=== PATIENT | male | born 1970 | race African-American/Black ===

== ENCOUNTER 2020-09-15 07:21 | Emergency (ER) | payer OTHER ==
[~2020-09-15 07:21] MED LIST: ADVIL200 M1 PO; AMITRIPTYLINE 550 MG PO; ELAVIL25 MG PO; ELAVIL50 MG PO; OXYCONTIN30 MG PO; XTAMPZA ER27 MG PO
[2020-10-21] MEDS ORDERED: OXYCONTIN30 MG PO (17:49)
[2020-11-21] MEDS ORDERED: MS CONTIN30 M1 PO (09:27)
[2020-12-24] MEDS ORDERED: OXYCODONE-ACET1 EACH PO (15:49)
[2021-02-24] MEDS ORDERED: OXYCODONE-ACET1 EACH PO (16:59)
== END 2020-09-15 10:55 | disposition home or self-care (01) ==
LOC: FER 07:21
DX: S22.32XA Fracture of one rib, left side, initial encounter for closed fracture (principal); S80.11XA Contusion of right lower leg, initial encounter; V43.52XA Car driver injured in collision with other type car in traffic accident, initial encounter; Y92.410 Unspecified street and highway as the place of occurrence of the external cause
CPT/HCPCS: 71101; 73590; 73700

== ENCOUNTER 2021-01-12 05:06 | Inpatient (IN) | payer OTHER ==
[~2021-01-12] VITALS: Ht 175.3 cm; Wt 93.9 kg
[~2021-01-12 05:06] MED LIST changes: +MS CONTIN30 M1 PO; +OXYCODONE-ACET1 EACH PO
[2021-01-12 06:30] LABS: BASOPHIL 0.3 % (0-2); EOSINOPHIL 0 % (0-5); HCT 46.7 % (42.0-52.0); HGB 15.9 g/dl (13.2-18.0); MCH 28.5 pg (25.0-31.0); MCV 83.8 fL (78.0-100.0); MONOCYTE 3.5 % (0-12); MPV 9.9 fL (6.0-9.5); NRBC 0; PLT 278 K/uL (150-400); RBC 5.57 M/uL (4.70-6.00); RDW 11.5 % (11.5-14.0)
[2021-01-12 06:48] LABS: LYMPHOCYTE 10.8 % (15-48)
[2021-01-12 07:27] LABS: PRO-BNP 33 pg/mL (<125)
[2021-01-12 07:28] LABS: INFLUENZA A NAA NEGATIVE (NEGATIVE)
[2021-01-12 07:34] LABS: CORONAVIRUS 2019 SARS-COV-2 POSITIVE (NEGATIVE)
[2021-01-12 07:34] LABS: CREATININE 0.97 mg/dL (0.67-1.17); POTASSIUM 4.8 mmol/L (3.5-5.1); TOTAL PROTEIN 8.3 g/dL (6.4-8.2)
[2021-01-12 07:35] LABS: ALBUMIN 2.8 g/dL (3.4-5.0); BILIRUBIN - TOTAL 0.9 mg/dL (0.2-1.0); C-REACTIVE PROTEIN 16.1 mg/dL (<=0.90); GLOBULIN (CALCULATION) 5.5 g/dL
[2021-01-12 10:00] LABS: BILIRUBIN 1+ mg/dL (NEGATIVE); BLOOD 2+ Ery/uL (NEGATIVE); CLARITY CLEAR (CLEAR); COLOR YELLOW (YELLOW); GLUCOSE (U) NORMAL (NORMAL); LEUKOCYTES NEGATIVE Leu/uL (NEGATIVE); NITRITE NEGATIVE (NEGATIVE); PROTEIN 3+ mg/dL (NEGATIVE); SPECIFIC GRAVITY 1.025 (1.001-1.030)
[2021-01-12 10:15] LABS: BACTERIA TRACE; SQUAMOUS EPITHELIAL CELLS RARE
--- NOTE | 2021-01-12 12:01 | NUR ---
HIS 2 MEDICATIONS ARE IN THE PHARMACY, HE WAS INFORMED THAT IF HE GOES HOME AFTER PHARMACY HOURS HE WOULD NEED TO COME BACK IN THE NEXT MORNING TO GET THEM. OXYCODONE AND AMITRIPTYLINE
[2021-01-13 07:11] LABS: BASOPHIL 0.3 % (0-2); EOSINOPHIL 0 % (0-5); HGB 14.8 g/dl (13.2-18.0); LYMPHOCYTE 15.7 % (15-48); MCH 28.6 pg (25.0-31.0); MCHC 33.6 g/dL (32.0-36.0); MCV 85.1 fL (78.0-100.0); MONOCYTE 6.6 % (0-12); NEUTROPHIL 76.6 % (41-80); NRBC 0; PLT 333 K/uL (150-400); RBC 5.17 M/uL (4.70-6.00); RDW 11.5 % (11.5-14.0); WBC 7.4 K/uL (4.0-10.5)
[2021-01-13 07:35] LABS: BUN/CREAT RATIO (CALC) 31.8 RATIO; CREATININE 0.88 mg/dL (0.67-1.17); POTASSIUM 5.3 mmol/L (3.5-5.1)
--- NOTE | 2021-01-13 16:45 | NUR ---
01/13/21 Will monitor for 02 needs at discharge. Please advise.
[2021-01-14 07:37] LABS: BUN/CREAT RATIO (CALC) 32.9 RATIO; C-REACTIVE PROTEIN 2.7 mg/dL (<=0.90); CREATININE 0.73 mg/dL (0.67-1.17); POTASSIUM 4.6 mmol/L (3.5-5.1)
--- NOTE | 2021-01-14 16:51 | NUR ---
TRANSFERRED BY WHEELCHAIR ON NON REBREATHER TO ROOM 220 REPORT GIVEN TO LUPILLO
--- NOTE | 2021-01-15 16:29 | NUR ---
1628 REPLACED THE IGH FLOW OXYGEN WITH AN OXYMIZER AT 12L SATS ARE AT 91% WILL CONTINUE TO MONITOR FOR CHANGES.
[2021-01-16 05:44] LABS: BASOPHIL 0 % (0-2); EOSINOPHIL 0.2 % (0-5); HCT 44.3 % (42.0-52.0); HGB 15.3 g/dl (13.2-18.0); LYMPHOCYTE 13.6 % (15-48); MCH 28.5 pg (25.0-31.0); MCHC 34.5 g/dL (32.0-36.0); MCV 82.5 fL (78.0-100.0); MONOCYTE 6.4 % (0-12); MPV 9.2 fL (6.0-9.5); NEUTROPHIL 78.8 % (41-80); NRBC 0; PLT 488 K/uL (150-400); RBC 5.37 M/uL (4.70-6.00); RDW 11.5 % (11.5-14.0); WBC 10.4 K/uL (4.0-10.5)
[2021-01-16 05:48] LABS: INR 1.32 (0.9-1.2); PROTHROMBIN TIME 15.7 SECONDS (11.8-13.4)
[2021-01-16 05:55] LABS: ALBUMIN 2.6 g/dL (3.4-5.0); BILIRUBIN - TOTAL 0.7 mg/dL (0.2-1.0); BUN/CREAT RATIO (CALC) 33.7 RATIO; C-REACTIVE PROTEIN 9.1 mg/dL (<=0.90); CREATININE 0.86 mg/dL (0.67-1.17); GLOBULIN (CALCULATION) 5.1 g/dL; POTASSIUM 4.8 mmol/L (3.5-5.1); TOTAL PROTEIN 7.7 g/dL (6.4-8.2)
--- NOTE | 2021-01-16 15:34 | NUR ---
SPOKE WITH DR. HERNANDEZ REGARDING PT. NEEDS AT D/C. DR. HERNANDEZ FEELS PT. WILL NEED OXYGEN, BUT HE IS UNSURE OF HOW MUCH AT THIS TIME. HE ALSO FEELS PT. WILL BE HERE FOR SEVERAL MORE DAYS AND WILL NOT DISCHARGE OVER THE WEEKEND.
[2021-01-17 13:07] LABS: CALCIUM, SERUM 10.9 mg/dL (8.7-10.2); PTH, INTACT 21 pg/mL (15-65)
[2021-01-18 06:23] LABS: BASOPHIL 0.2 % (0-2); EOSINOPHIL 0.4 % (0-5); HCT 44.9 % (42.0-52.0); HGB 15.2 g/dl (13.2-18.0); LYMPHOCYTE 21.5 % (15-48); MCH 28.5 pg (25.0-31.0); MCHC 33.9 g/dL (32.0-36.0); MCV 84.1 fL (78.0-100.0); MONOCYTE 7.7 % (0-12); MPV 10.4 fL (6.0-9.5); NEUTROPHIL 69.3 % (41-80); NRBC 0; PLT 458 K/uL (150-400); RBC 5.34 M/uL (4.70-6.00); RDW 11.6 % (11.5-14.0); WBC 11.1 K/uL (4.0-10.5)
[2021-01-18 06:41] LABS: ALBUMIN 2.6 g/dL (3.4-5.0); BILIRUBIN - TOTAL 0.7 mg/dL (0.2-1.0); BUN/CREAT RATIO (CALC) 32.4 RATIO; C-REACTIVE PROTEIN 3.6 mg/dL (<=0.90); CREATININE 1.02 mg/dL (0.67-1.17); GLOBULIN (CALCULATION) 5.1 g/dL; POTASSIUM 5.1 mmol/L (3.5-5.1); TOTAL PROTEIN 7.7 g/dL (6.4-8.2)
[2021-01-18] MEDS ORDERED: MEDROL 4MG DOSEP4 MG PO (17:30)
--- NOTE | 2021-01-19 13:50 | NUR ---
PT REQUIRED HOME O2 AT 6 LITERS. ORDERED PORTABLE TANK AND HOME CONCENTRATOR FROM [facility] PER PT. REQUEST.
[2021-02-24] MEDS ORDERED: OXYCODONE-ACET1 EACH PO (16:59)
== END 2021-01-19 12:20 | disposition home or self-care (01) | DRG 177 ==
LOC: FER 05:06 → FMS 09:29 → FICU 09:29 → FMS 01-14 15:45 → FICU 01-14 15:45 → FMS 01-19 12:20
PROVIDERS: Emergency Medicine Emergency Medical Services; ADMIT Allergy & Immunology Allergy
PROC: 8E0ZXY6 Isolation (ICD-10-PCS; principal; 2021-01-12)
PROC: XW033E5 Introduction of Remdesivir Anti-infective into Peripheral Vein, Percutaneous Approach, New Technology Group 5 (ICD-10-PCS; 2021-01-12)
PROC: 5A0955A Assistance with Respiratory Ventilation, Greater than 96 Consecutive Hours, High Flow/Velocity Cannula (ICD-10-PCS; 2021-01-13)
PROC: XW0DXM6 Introduction of Baricitinib into Mouth and Pharynx, External Approach, New Technology Group 6 (ICD-10-PCS; 2021-01-16)
DX: U07.1 COVID-19 (principal); J12.82 Pneumonia due to coronavirus disease 2019; J96.01 Acute respiratory failure with hypoxia; N17.9 Acute kidney failure, unspecified; I10 Essential (primary) hypertension; E78.5 Hyperlipidemia, unspecified; G89.4 Chronic pain syndrome; E86.0 Dehydration; M54.5 Low back pain; Z79.899 Other long term (current) drug therapy; Z98.890 Other specified postprocedural states
CPT/HCPCS: 36415; 36600; 71045; 71275; 80048; 80053; 81001; 82310; 82330; 82728; 82803; 83605; 83615; 83880; 83970; 84145; 84484; 85025; 85379; 85610; 86140; 87040; 87088; 93005; 94640; 94664; 94760; 94762; C9399; J0696; J1100; J1650; J1885; J7030; J7050; J8540; Q9967; U0002